=== PATIENT | male | born 1935 | race Caucasian/White ===

== ENCOUNTER 2016-12-17 12:14 | Emergency (ER) | payer MEDICARE, OTHER ==
[~2016-12-17] VITALS: Ht 157.5 cm; Wt 75.5 kg
[2016-12-17 12:14] VITALS: BP 111/74
[2016-12-17] MEDS ORDERED: LISI10TA4 PO (12:27)
[2016-12-17] MEDS ORDERED: MULT1TAB18 PO (12:27)
[2016-12-17] MEDS ORDERED: VESI10TA2 PO (12:27)
[2016-12-17] MEDS ORDERED: CRES10TA32 PO (12:27)
[2016-12-17] MEDS ORDERED: ECOT81TA5 PO (12:27)
[2016-12-17] MEDS ORDERED: PREV1CAP PO (12:27)
[2016-12-17] MEDS ORDERED: PAXI20TA29 PO (12:27)
[2016-12-17] MEDS ORDERED: GASTROGRAFIN SOLUTION 30ML (Q9963) As Ordered ONE (13:10)
[2016-12-17] MEDS ORDERED: ONDANSETRON 4MG/2ML VIAL (J2405) IV ONE (13:45)
[2016-12-17] MEDS ORDERED: GASTROGRAFIN SOLUTION 30ML (Q9963) PO ONE ×2 (14:00→14:30)
[2016-12-17 14:09] LABS: BASO % 0.9 % (0.0-1.0); EOS # 0.2 K/mm3 (0.0-0.50); EOS % 2.6 % (0.0-3.0); LARGE UNSTAINED CELL # 0.1 K/mm3 (0.0-0.4); LYMPH # 0.7 K/mm3 (1.5-4.5); LYMPH % 11.2 % (24.0-44.0); MEAN CORPUSCULAR HGB CONC 32.9 g/dl (32.0-36.5); MEAN CORPUSCULAR VOLUME 97.3 fl (80.0-96.0); MONO # 0.3 K/mm3 (0.0-0.8); MONO % 5.2 % (0.0-5.0); NEUTROPHILS # 4.6 K/mm3 (1.8-7.7); NEUTROPHILS % 78.1 % (36.0-66.0); PLATELET COUNT, AUTOMATED 249 k/mm3 (150-450); WHITE BLOOD COUNT 5.9 K/mm3 (4.0-10.0)
[2016-12-17] MEDS ORDERED: OXYB5TAB10 PO (14:20)
[2016-12-17] MEDS ORDERED: OMEP40CA2 PO (14:20)
[2016-12-17] MEDS ORDERED: FLUO20CA8 PO (14:20)
[2016-12-17] MEDS ORDERED: IRON65TA PO (14:20)
[2016-12-17 14:50] LABS: ALBUMIN 3.5 GM/DL (3.2-5.2); ALBUMIN/GLOBULIN RATIO 0.9 (1.00-1.93); BILIRUBIN,DIRECT 0.1 MG/DL (0.0-0.2); BILIRUBIN,TOTAL 0.5 MG/DL (0.2-1.0); CALCIUM LEVEL 8.5 MG/DL (8.8-10.2); CREATININE FOR GFR 1.4 MG/DL (0.70-1.30); GLOMERULAR FILTRATION RATE 51.5 (>35); POTASSIUM SERUM 3.8 MEQ/L (3.5-5.1); TOTAL PROTEIN 7.4 GM/DL (6.4-8.2)
[2016-12-17] MEDS ORDERED: ISOVUE-370 76% 100ML VIAL (Q9967) As Ordered ONE (15:39)
--- NOTE | 2016-12-17 16:23 | REP ---
Clinical: Nausea and vomiting. Technique: Axial contrast enhanced images from the lung bases to the pubic symphysis using oral and 100 ml Isovue 370 intravenous contrast material with coronal and sagittal re-formations. Comparison: None. Findings: Lung bases are clear. A large paraesophageal gastric hiatal hernia containing proximal to mid fundus of the stomach above the hiatus may be related to patient's nausea and vomiting. The remainder of the enteric system is unremarkable and without further obstruction or acute inflammatory process. Normal terminal ileum and appendix are identified. No evidence for diverticulitis. Liver, spleen, pancreas, gallbladder, bilateral adrenal glands and kidneys are normal. 1.2 cm left renal cyst noted. Pelvis demonstrates normal bladder and mildly prominent prostate gland measuring approximately 4.3 cm maximal diameter. No adenopathy. No ascites. No free air. Atherosclerotic changes to the aorta without aneurysm or dissection. Musculoskeletal structures demonstrate age-related degenerative changes. Impression: 1. Large paraesophageal gastric hiatal hernia contains proximal to mid stomach above the hiatus and may be related to patient's nausea and vomiting. 2. 1.2 cm left renal cyst. 3. No further acute abdominopelvic pathology appreciated. Signed by Joe Dudley MD 12/17/2016 04:14 P
[2016-12-17] MEDS ORDERED: ZOFR4TAB3 PO (17:35)
[2016-12-17] MEDS ORDERED: ONDANSETRON 4 MG ORAL DISINTEGRATING TAB (S0181) PO ONE (17:45)
--- NOTE | 2016-12-17 18:08 | ECGEPIP ---
Stationary ECG Study [facility] - ED Test Date: 2016-12-17 Pat Name: ROSENDO TANNER Department: Room: - Gender: M [employer] Operator: ct : 1935 Requested By: JONY Judge PA-C Order Number: [id number] Reading MD: Nabil Meza Measurements Intervals [place] Rate: 62 P: 183 NV: 219 QRS: -24 QRSD: 134 T: 136 QT: 462 QTc: 471 Interpretive Statements ELECTRONIC ATRIAL PACEMAKER LEFT BUNDLE BRANCH BLOCK NO PRIORS Electronically Signed On 12-17-2016 18:08:17 EDT by Nabil Meza
== END 2016-12-17 17:49 | disposition home or self-care (01) ==
LOC: M ED 12:14
DX: R11.2 Nausea with vomiting, unspecified (principal); K44.9 Diaphragmatic hernia without obstruction or gangrene; R19.7 Diarrhea, unspecified; I25.2 Old myocardial infarction; I10 Essential (primary) hypertension; E78.00 Pure hypercholesterolemia, unspecified; M06.9 Rheumatoid arthritis, unspecified; G30.9 Alzheimer's disease, unspecified; F41.9 Anxiety disorder, unspecified; R32 Unspecified urinary incontinence; Z95.0 Presence of cardiac pacemaker; Z79.82 Long term (current) use of aspirin; Z79.899 Other long term (current) drug therapy
CPT/HCPCS: 74177; 80048; 80076; 81001; 82150; 82550; 82553; 83605; 83690; 84484; 85025; 86140; 87086; 93005; 96374; 99284; J2405; Q9963; Q9967